=== PATIENT | female | born 2005 | race Caucasian/White ===

== ENCOUNTER → 2024-04-30 | Outpatient (CLI) | payer OTHER ==
--- NOTE | 2024-04-30 15:22 | US ---
EXAMINATION TYPE: US thyroid st tissue head/neck DATE OF EXAM: 04/30/2024 COMPARISON: NONE CLINICAL INDICATION: Female, 18 years old with history of R22.0 LOCALIZED SWELLING, MASS AND LUMP, HE AD; Lump mid neck area. TECHNIQUE: FINDINGS: No abnormalities visualized. Thyroid ultrasound palpable area shows no worrisome solid or cystic mass or fluid collection. If area is felt to become larger or painful repeat imaging would be warranted. IMPRESSION: As above [facility], , 04/30/2024 3:20 PM
== END | disposition home or self-care (01) ==
LOC: RADUSWWP 14:41
PROVIDERS: ATTEND Family Medicine
DX: R22.0 Localized swelling, mass and lump, head (principal); R22.1 Localized swelling, mass and lump, neck
CPT/HCPCS: 76536